=== PATIENT | female | born 1955 | race Two or more races ===

== ENCOUNTER 2019-12-08 11:04 | Day surgery (SDC) | payer OTHER | END 2019-12-08 16:10 | disposition home or self-care (01) | LOC: CIR.AMB 11:04 | PROVIDERS: ATTEND Surgery | DX: K62.89 Other specified diseases of anus and rectum (principal); K64.8 Other hemorrhoids; Z12.11 Encounter for screening for malignant neoplasm of colon ==

== ENCOUNTER 2023-12-26 07:51 | Inpatient (IN) | payer OTHER ==
[~2023-12-26] VITALS: Ht 152.4 cm; Wt 53.5 kg
[2023-12-26] MEDS ORDERED: COZAAR50 MG (08:35)
[2023-12-26] MEDS ORDERED: LIPITOR (08:36)
[2023-12-26] MEDS ORDERED: CATAFLAN (08:36)
[2023-12-26] MEDS ORDERED: TRICOR (08:36)
[2023-12-26 08:37] LABS: PH,URINE 6.5 (5.0-8.0); URINE APPEARANCE Turbid; URINE BILIRRUBIN Negative (NEGATIVE); URINE BLOOD Negative; URINE COLOR Yellow; URINE GLUCOSE Negative (NEGATIVE); URINE LEUKOCYTE Large; URINE NITRATE Positive; URINE PROTEIN Negative (NEGATIVE); URINE UROBILINOGEN 0.2 E.U./dl
[2023-12-26 08:38] LABS: URINE EPITHELIAL CELLS 61.3 uL (0.0-38.8); URINE RBC 7.3 uL (0.0-20.8); URINE WBC 550.7 uL (0.0-23.2)
[2023-12-26 08:40] LABS: HEMATOCRIT 36.5 % (36.0-45.00); HEMOGLOBIN 12.5 g/dL (12.0-15.00); MEAN CELL VOLUME 88.8 fL (80.00-100.00); MEAN CORPUSCULAR HEMOGLOBIN 30.3 pg (27.00-32.0); MEAN CORPUSCULAR HGB CONC 34.1 g/dl (32.0-36.0); PLATELET COUNT 363 K/uL (150-450); RED BLOOD COUNT 4.11 M/uL (4.00-6.00); RED CELL DISTRIBUTION WIDTH 14.1 % (11.5-14.5)
[2023-12-26 08:53] LABS: URINE BACTERIA > 9821.5 uL (0.0-1933)
[2023-12-26 09:26] LABS: PARTIAL THROMBOPLASTIN TIME 29.4 SECONDS (22.0-34.0); PROTHROMBIN TIME 10.5 SECONDS (9.0-11.5)
[2023-12-26 09:31] LABS: ALBUMIN 4.5 gm/dL (3.4-5.0); BILIRUBIN TOTAL 0.47 mg/dL (0.3-1.2); CREATININE SERUM 0.88 mg/dL (0.55-1.02); GFR 63.52; GLOBULINA 2.6 G/DL (2.4-3.5); POTASSIUM 4.28 mEq/L (3.5-5.1); TOTAL PROTEIN 7.1 gm/dL (6.4-8.2)
[2023-12-31] MEDS ORDERED: FENOFIBRATE145 MG (10:51)
[2023-12-31] MEDS ORDERED: GABAPENTIN800 M1 (10:51)
[2023-12-31] MEDS ORDERED: OMEPRAZOLE20 MG (10:52)
[2023-12-31] MEDS ORDERED: CLONAZEPAM1 MG (10:52)
[2023-12-31] MEDS ORDERED: CLONAZEPAM0.5 MG (10:52)
[2023-12-31] MEDS ORDERED: PREMARIN30 GM (10:52)
[2023-12-31] MEDS ORDERED: DICLOFENAC POTA50 MG (10:52)
[2023-12-31] MEDS ORDERED: ATORVASTATIN CA10 MG (10:52)
[2023-12-31] MEDS ORDERED: FLUOXETINE HCL20 MG (10:53)
[2023-12-31] MEDS ORDERED: MIRTAZAPINE30 MG (10:53)
[2023-12-31] MEDS ORDERED: RESTORIL30 MG (10:53)
[2023-12-31] MEDS ORDERED: LOSARTAN POTASS50 MG (10:53)
[2023-12-31] MEDS ORDERED: DICLOFENAC SODI50 GM (10:53)
[2023-12-31] MEDS ORDERED: OLANZAPINE5 MG (10:54)
[2023-12-31] MEDS ORDERED: ALENDRONATE SOD70 MG (10:54)
[2023-12-31] MEDS ORDERED: POVIDONE-IODINE 0.75 OZ PACKET TOP ONE (12:15)
[2023-12-31] MEDS ORDERED: CEFAZOLIN SODIUM 1,000 MG VIAL IV ONE (12:15)
[2023-12-31] MEDS ORDERED: KETOROLAC TROMETHAMINE 60 MG VIAL IM ONE (12:15)
[2023-12-31] MEDS ORDERED: TRANEXAMIC ACID 100MG/1ML (1000MG) AMPUL IV ONE ×2 (12:15)
[2023-12-31] MEDS ORDERED: VANCOMYCIN HCL 1,000 MG VIAL IR ONE (12:15)
[2023-12-31] MEDS ORDERED: POLYMYXIN B SULFATE 500,000 U VIAL IR ONE (12:15)
[2023-12-31] MEDS ORDERED: MORPHINE SULFATE 4 MG/ML CARTRIDGE IV ONE (12:15)
[2023-12-31] MEDS ORDERED: ONDANSETRON HCL 2 MG/ML VIAL IV PRN (13:30)
[2023-12-31] MEDS ORDERED: SODIUM CHLORIDE 0.45 % 1,000 ML IV SCH (13:30)
[2023-12-31] MEDS ORDERED: MORPHINE SULFATE 4 MG/ML CARTRIDGE IV PRN (13:30)
[2023-12-31] MEDS ORDERED: MORPHINE SULFATE 2 MG/ML CARTRIDGE IV ONE (13:30)
[2023-12-31 15:24] LABS: HEMATOCRIT 31.2 % (36.0-45.00); HEMOGLOBIN 10.6 g/dL (12.0-15.00); RED BLOOD COUNT 3.49 M/uL (4.00-6.00)
[2023-12-31] MEDS ORDERED: GENTAMICIN SULFATE 40 MG/ML VIAL IV SCH (17:00)
[2023-12-31] MEDS ORDERED: CEFAZOLIN SODIUM 1,000 MG VIAL IV SCH (18:00)
[2023-12-31] MEDS ORDERED: TEMAZEPAM 15 MG CAPSULE PO SCH (21:00)
[2024-01-01 00:59] LABS: HEMATOCRIT 24.4 % (36.0-45.00); MEAN CORPUSCULAR HEMOGLOBIN 30.6 pg (27.00-32.0); MEAN CORPUSCULAR HGB CONC 34.9 g/dl (32.0-36.0); PLATELET COUNT 246 K/uL (150-450); RED BLOOD COUNT 2.77 M/uL (4.00-6.00); RED CELL DISTRIBUTION WIDTH 13.9 % (11.5-14.5)
[2024-01-01 01:00] LABS: HEMOGLOBIN 8.5 g/dL (12.0-15.00)
[2024-01-01] MEDS ORDERED: FUROsemide 20 MG/2 ML VIAL IV SCH (08:00)
[2024-01-01] MEDS ORDERED: OxyCODONE HCL/APAP UD (PERCOCET) PO PRN (08:00)
[2024-01-01] MEDS ORDERED: RIVAROXABAN 10 MG TAB PO SCH (09:00)
[2024-01-01] MEDS ORDERED: OxyCODONE HCL ER 10MG TAB (OxyCONTIN) PO SCH (09:00)
[2024-01-01] MEDS ORDERED: BACITRACIN 28.35 GM OINT.TUBE TOP SCH (09:00)
[2024-01-01] MEDS ORDERED: LOSARTAN POTASSIUM 50 MG TABLET PO SCH (09:00)
[2024-01-01] MEDS ORDERED: SENNA/DOCUSATE SODIUM 1 TAB TABLET PO SCH (09:00)
[2024-01-01] MEDS ORDERED: IRON FUM,PS/FOLIC/BCOMP,C NO.9 1 CAP CAPSULE PO SCH (09:00)
[2024-01-01] MEDS ORDERED: SULFAMETHOXAZOLE/TRIMETHOPRIM DS 1 TAB PO SCH ×2 (12:00→21:00)
[2024-01-01] MEDS ORDERED: SULFAMETHOXAZOLE/TRIMETHOPRIM DS 1 TAB PO NR (12:00)
[2024-01-02 06:25] LABS: HEMATOCRIT 32.2 % (36.0-45.00); HEMOGLOBIN 11.1 g/dL (12.0-15.00); MEAN CELL VOLUME 89.5 fL (80.00-100.00); MEAN CORPUSCULAR HGB CONC 34.6 g/dl (32.0-36.0); PLATELET COUNT 216 K/uL (150-450); RED BLOOD COUNT 3.59 M/uL (4.00-6.00); RED CELL DISTRIBUTION WIDTH 13.8 % (11.5-14.5)
[2024-01-02] MEDS ORDERED: Septra Ds Tablet PO (08:31)
[2024-01-02] MEDS ORDERED: INTEGRA PLUS C1 EACH PO (08:31)
[2024-01-02] MEDS ORDERED: XARELTO10 MG PO (08:31)
[2024-01-02] MEDS ORDERED: OXYC1TAB9 PO (08:31)
== END 2024-01-02 15:01 | DRG 470 ==
LOC: O/R 12-31 05:37 → SURH 12-31 07:00 → OB/GYN 12-31 14:55
PROVIDERS: ADMIT Orthopaedic Surgery Sports Medicine; ATTEND Orthopaedic Surgery Sports Medicine
PROC: 0SRD0J9 Replacement of Left Knee Joint with Synthetic Substitute, Cemented, Open Approach (ICD-10-PCS; principal; 2023-12-31 07:00)
PROC: 30233N1 Transfusion of Nonautologous Red Blood Cells into Peripheral Vein, Percutaneous Approach (ICD-10-PCS; 2024-01-01)
DX: M17.12 Unilateral primary osteoarthritis, left knee (principal); I10 Essential (primary) hypertension; D64.9 Anemia, unspecified